=== PATIENT | male | born 1960 | race African-American/Black ===

== ENCOUNTER 2017-09-21 12:37 | Inpatient (IN) | payer OTHER ==
[2017-09-21 13:07] VITALS: BMI 32.3
--- NOTE | 2017-09-21 14:22 | HP ---
COWS - Scale Resting Pulse: 1= [place] 81-100 Sweatin= Chills/Flushing Restless Observation: 3= Extraneous Movement Pupil Size: 0= Normal to Room Light Bone or Joint Aches: 2= Severe Diffuse Aches Runny Nose/ Eye Tearin= Runny Nose/Eyes GI Upset > 30mins: 1= Stomach Cramp Tremor Observation: 1= Tremor [place], Not Seen Yawning Observation: 1= 1-2x During Session Anxiety or Irritability: 2=Irritable/Anxious Goose Flesh Skin: 0=Smooth Skin COWS Score: 14 Admission ROS S - HPI Chief Complaint: I've got the jerks, the shakes from not having any heroin - I need help Allergies/Adverse Reactions: Allergies Allergy/AdvReac Type Severity Reaction Status Date / Time No Known Allergies Allergy Verified 05/17/16 15:00 History of Present Illness: 56 gentleman here for detox from opiates - was in [facility] ED - got sick from taking suboxone - while also using heroin. Although he drinks, he states it is only about 3 times/week. History of prescribed xanax and oxycodone but none since jul 2017 per [place] PRIMARY COUNSELOR. No seizures but does have black outs. This is one of multiple times in detox. Last time in detox was here in 2016. History of being on suboxone and methadone in the past. Exam Limitations: Clinical Condition - Ebola screening Have you traveled outside of the country in the last 21 days: No (N) Have you had contact with anyone from an Ebola affected area: No Have you been sick,other than usual withdrawal symptoms: No Do you have a fever: No - Review of Systems Constitutional: Loss of Appetite, Malaise, Changes in sleep EENT: reports: Tearing, Nose Congestion Respiratory: reports: No Symptoms reported Cardiac: reports: Chest Tightness GI: reports: Poor Appetite, Vomiting, Indigestion : reports: No Symptoms Reported Musculoskeletal: reports: Back Pain, Joint Pain, Muscle Pain Integumentary: reports: Dryness Neuro: reports: Headache Endocrine: reports: No Symptoms Reported Hematology: reports: No Symptoms Reported Psychiatric: reports: Judgement Intact, Mood/Affect Appropiate, Anxious Other Systems: Reviewed and Negative Patient History - Patient Medical History Hx Anemia: Yes Hx Asthma: No Hx Chronic Obstructive Pulmonary Disease (COPD): Yes (inhaler) Hx Cancer: No Hx Cardiac Disorders: No Hx Congestive Heart Failure: No Hx Hypertension: Yes (on meds.) Hx Hypercholesterolemia: No Hx Pacemaker: No HX Cerebrovascular Accident: No Hx Seizures: No Hx Dementia: No Hx Diabetes: No Hx Gastrointestinal Disorders: No Hx Liver Disease: No Hx Genitourinary Disorders: No Hx Sexually Transmitted Disorders: No Hx Renal Disease (ESRD): No Hx Thyroid Disease: No Hx Human Immunodeficiency Virus (HIV): No Hx Hepatitis C: No Hx Depression: Yes (with insomnia; hospitalized in 1999 [facility]) Hx Suicide Attempt: No Hx Bipolar Disorder: No Hx Schizophrenia: No Other Medical History: back injury - nerve damage - Patient Surgical History Past Surgical History: Yes Hx Neurologic Surgery: Yes (low back sx 2000) Hx Cataract Extraction: No Hx Cardiac Surgery: No Hx Lung Surgery: No Hx Breast Surgery: No Hx Breast Biopsy: No Hx Abdominal Surgery: No Hx Appendectomy: No Hx Cholecystectomy: No Hx Genitourinary Surgery: No Hx Orthopedic Surgery: Yes (L knee sx 2001) Anesthesia Reaction: No - PPD History Previous Implant?: Yes Documented Results: Negative w/proof Implanted On Prior [facility] Admission?: Yes Date: 03/29/16 Results: 0 mm PPD to be Administered?: Yes - Reproductive History Patient is a Female of Child Bearing Age (11 -55 yrs old): No (male) - Smoking Cessation Smoking history: Current every day smoker Have you smoked in the past 12 months: Yes Aproximately how many cigarettes per day: 30 Cigars Per Day: 0 Hx Chewing Tobacco Use: No Initiated information on smoking cessation: Yes 'Breaking Loose' booklet given: 09/21/17 - Substance & Tx. History Hx Alcohol Use: Yes Hx Substance Use: Yes Substance Use Type: Alcohol, Heroin Hx Substance Use Treatment: Yes (detox, rehab, hx suboxone, hx methadone) - Substances Abused heroin Route: Inhalation Frequency: Daily Amount used: 3 bundles Age of first use: 15 Date of Last Use: 09/20/17 etoh Frequency: 3-6 times per week Amount used: three sixteen oz beers about three times a week Age of first use: 14 Date of Last Use: 09/18/17 Family Disease History - Family Disease History Family Disease History: Diabetes: Brother (six - three living - etoh,cirrhosis) , Heart Disease: Mother (living, htn, bedridden), Brother, [place]: Sister (four - breast cancer), Other: Father (, no contact, etoh), Mother, Brother, Sister, Daughter (living - healthy) Admission Physical Exam [facility] - Vital Signs Vital Signs: Vital Signs - 24 hr 09/21/17 13:05 Temperature 97.6 F Pulse Rate 76 Respiratory 18 Rate Blood Pressure 127/70 - Physical General Appearance: Yes: Nourished, Appropriately Dressed, Moderate Distress, Obese, Anxious HEENTM: Yes: EOMI, Hearing grossly Normal, Normocephalic, Normal Voice, Pharynx Normal Respiratory: Yes: Normal Breath Sounds, No Respiratory Distress Neck: Yes: No masses,lesions,Nodules, Supple Breast: Yes: Breast Exam Deferred Cardiology: Yes: Regular Rhythm, Regular Rate Abdominal: Yes: Flat, Soft Genitourinary: Yes: Within Normal Limits Back: Yes: Normal Inspection, Muscle Spasm Musculoskeletal: Yes: full range of Motion, Gait Steady, Back pain, Muscle Pain Extremities: Yes: Normal Inspection, Non-Tender Neurological: Yes: Fully Oriented, Alert, Normal Mood/Affect, Normal Response, Numbness Integumentary: Yes: Normal Color, Dry, Warm Lymphatic: Yes: Within Normal Limits - Diagnostic (1) Opioid dependence with withdrawal Current Visit: Yes Status: Acute (2) Nicotine dependence Current Visit: Yes Status: Acute Qualifiers: Nicotine product type: cigarettes Substance use status: uncomplicated Qualified Code(s): F17.210 - Nicotine dependence, cigarettes, uncomplicated (3) Arthritis of right knee Current Visit: Yes Status: Chronic (4) COPD (chronic obstructive pulmonary disease) Current Visit: Yes Status: Chronic Qualifiers: COPD type: emphysema Emphysema type: other Qualified Code(s): J43.8 - Other emphysema (5) Hypertension Current Visit: Yes Status: Chronic Qualifiers: Hypertension type: essential hypertension Qualified Code(s): I10 - Essential (primary) hypertension (6) Back pain Current Visit: Yes Status: Acute Qualifiers: Back pain location: low back pain Back pain laterality: bilateral Sciatica presence: with sciatica Sciatica laterality: bilateral sciatica Cleared for Admission S - Detox or Rehab S Level of Care: Medically Managed Detox Regimen/Protocol: Methadone S Breath Alcohol Content Breath Alcohol Content: 0 Urine Drug Screen - Results Urine Drug Screen Results: HARLEY-Cocaine, OPI-Opiates, TCA-Tricyclic Antidepress
[2017-09-21] MEDS ORDERED: LOPERAMIDE HCL 2 MG CAPSULE PO PRN (14:28)
[2017-09-21] MEDS ORDERED: METHADONE HCL 10 MG TABLET (FOR DETOX USE ONLY) PO ONE ×2 (14:28→23:00)
[2017-09-21] MEDS ORDERED: MAGNESIUM HYDROX 2400MG/30ML ORAL SUSPENSION 30 ML CUP PO PRN (14:28)
[2017-09-21] MEDS ORDERED: MAGNESIUM CITRATE 300 ML BOTTLE PO PRN (14:28)
[2017-09-21] MEDS ORDERED: MENTHOL/PHENOL 1 EACH UD MM PRN (14:28)
[2017-09-21] MEDS ORDERED: MAG HYDROX/AL HYDROX/SIMETH 30 ML UNIT-DOSE CUP PO PRN (14:28)
[2017-09-21] MEDS ORDERED: guaiFENesin/D-METHORPHAN HB 10 ML UNIT-DOSE CUPS PO PRN (14:28)
[2017-09-21] MEDS ORDERED: METHADONE HCL 10 MG TABLET (FOR DETOX USE ONLY) ONE (18:08)
[2017-09-21] MEDS: ASPIRIN 81 MG CHEWABLE TABLETS PO SCH (18:10)
[2017-09-21] MEDS: diazePAM 5 MG TABLET PO PRN ×2 (18:11→22:14)
[2017-09-21] MEDS: NICOTINE POLACRILEX 4 MG GUM BUC PRN (19:50)
[2017-09-21] MEDS: THIAMINE HCL 100 MG TABLET (FP) PO SCH (22:14)
[2017-09-21] MEDS: CYCLOBENZAPRINE HCL 5 MG TABLET PO PRN (23:00)
[2017-09-21 23:26] LABS: URINE APPEARANCE CLEAR; URINE BILIRUBIN NEGATIVE (<2.0 mg/dL); URINE BLOOD NEGATIVE (NEGATIVE); URINE COLOR DKYELLOW; URINE GLUCOSE (UA) NEGATIVE (NEGATIVE); URINE KETONE NEGATIVE (NEGATIVE); URINE LEUK ESTERASE NEGATIVE (NEGATIVE); URINE NITRITE NEGATIVE (NEGATIVE); URINE PROTEIN NEGATIVE (NEGATIVE); URINE UROBILINOGEN 4.0 E.U/dl mg/dL (0.2-1.0)
[2017-09-22] MEDS: diazePAM 5 MG TABLET PO PRN ×4 (02:03→22:23)
[2017-09-22] MEDS: CYCLOBENZAPRINE HCL 5 MG TABLET PO PRN ×2 (07:26→15:02)
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
[2017-09-22] MEDS: hydrOXYzine PAMOATE 50 MG CAPSULE (FP) PO PRN ×3 (08:54→19:39)
[2017-09-22] MEDS: ALBUTEROL SO4 18 GM HFA INHALER IH PRN (09:04)
[2017-09-22 09:59] LABS: HEMATOCRIT 39.2 % (35.4-49); MCH 30.7 pg (25.7-33.7); MCHC 33.2 g/dl (32.0-35.9); MEAN CELL VOLUME 92.3 fl (80-96); MEAN PLT VOLUME 9.6 fl (7.5-11.1); PLATELET COUNT 208 K/MM3 (134-434); RBC 4.25 M/mm3 (4.00-5.60); RDW 14.2 % (11.9-15.9); WHITE BLOOD COUNT 7.6 K/mm3 (4.0-10.0)
[2017-09-22] MEDS ORDERED: METHADONE HCL 10 MG TABLET (FOR DETOX USE ONLY) PO ONE (10:00)
[2017-09-22 10:03] LABS: ALBUMIN 3.4 g/dl (3.4-5.0); ANION GAP 7 (8-16); BILIRUBIN,TOTAL 0.3 mg/dL (0.2-1.0); BLOOD UREA NITROGEN 12 mg/dL (7-18); CALCIUM 8.4 mg/dL (8.5-10.1); CHLORIDE 110 mmol/L (98-107); CO2 26 mmol/L (21-32); CREATININE 0.8 mg/dL (0.7-1.3); GLUCOSE,RANDOM 103 mg/dL (74-106); SGOT/AST 16 U/L (15-37); SODIUM 143 mmol/L (136-145); TOT PROT 6.5 g/dl (6.4-8.2)
[2017-09-22 10:05] LABS: ALK PHOS 82 U/L (45-117); SGPT/ALT 24 U/L (12-78)
[2017-09-22] MEDS: PRENATAL VITAMINS W/ FOLIC ACID TABLET (FP) PO SCH (10:08)
[2017-09-22] MEDS: ASPIRIN 81 MG CHEWABLE TABLETS PO SCH (10:08)
--- NOTE | 2017-09-22 14:46 | EKG ---
Test Reason : Blood Pressure : / mmHG Vent. Rate : 069 BPM Atrial Rate : 069 BPM P-R Int : 276 ms QRS Dur : 078 ms QT Int : 388 ms P-R-T Axes : 029 049 054 degrees QTc Int : 415 ms SINUS RHYTHM WITH 1ST DEGREE A-V BLOCK OTHERWISE NORMAL ECG NO PREVIOUS ECGS AVAILABLE Confirmed by SKYE WILLIAM MD ([id number]) on 09/22/2017 2:45:50 PM Referred By: Confirmed By:SKYE WILLIAM MD
--- NOTE | 2017-09-22 15:00 | PN ---
S COWS - Scale Resting Pulse: 0= [place] 80 or Below Sweatin= Chills/Flushing Restless Observation: 3= Extraneous Movement Pupil Size: 1= Pupils >than Normal Bone or Joint Aches: 2= Severe Diffuse Aches Runny Nose/ Eye Tearin= Runny Nose/Eyes GI Upset > 30mins: 2= Nausea/Diarrhea Tremor Observation of Outstretched Hands: 2= Slight Tremor Visible Yawning Observation: 1= 1-2x During Session Anxiety or Irritability: 2=Irritable/Anxious Goose Flesh Skin: 0=Smooth Skin COWS Score: 16 S Progress Note (SOAP) Subjective: Diarrhea, muscle spasm/ache, tremor, chills, sweating Objective: 09/22/17 14:59 Last Vital Signs Temp Pulse Resp BP Pulse Ox 97 F L 66 16 125/72 09/22/17 14:12 09/22/17 14:12 09/22/17 14:12 09/22/17 14:12 Laboratory Tests 09/21/17 09/22/17 09/22/17 21:00 07:30 07:30 WBC 7.6 RBC 4.25 Hgb 13.0 Hct 39.2 MCV 92.3 MCH 30.7 MCHC 33.2 RDW 14.2 Plt Count 208 MPV 9.6 Sodium 143 Potassium 4.0 Chloride 110 H Carbon Dioxide 26 Anion Gap 7 L BUN 12 D Creatinine 0.8 Creat Clearance w eGFR > 60 Random Glucose 103 D Calcium 8.4 L Total Bilirubin 0.3 D AST 16 ALT 24 Alkaline Phosphatase 82 Total Protein 6.5 Albumin 3.4 Urine Color Dkyellow Urine Appearance Clear Urine pH 6.0 Ur Specific [place] 1.028 Urine Protein Negative Urine Glucose (UA) Negative Urine Ketones Negative Urine Blood Negative Urine Nitrite Negative Urine Bilirubin Negative Urine Urobilinogen 4.0 e.u/dl Ur Leukocyte Esterase Negative RPR Titer 09/22/17 07:30 WBC RBC Hgb Hct MCV MCH MCHC RDW Plt Count MPV Sodium Potassium Chloride Carbon Dioxide Anion Gap BUN Creatinine Creat Clearance w eGFR Random Glucose Calcium Total Bilirubin AST ALT Alkaline Phosphatase Total Protein Albumin Urine Color Urine Appearance Urine pH Ur Specific [place] Urine Protein Urine Glucose (UA) Urine Ketones Urine Blood Urine Nitrite Urine Bilirubin Urine Urobilinogen Ur Leukocyte Esterase RPR Titer Nonreactive Labs reviewed Assessment: 09/22/17 14:59 Withdrawal symptoms Plan: Encouraged detox Encouraged to drink more water for hydration
[2017-09-22] MEDS: [UNRECOGNIZED DRUG - OTHER] PO SCH (16:43)
[2017-09-22] MEDS ORDERED: QUEtiapine FUMARATE 100 MG TABLET (FP) PO SCH ×2 (22:00)
[2017-09-22] MEDS: THIAMINE HCL 100 MG TABLET (FP) PO SCH (22:23)
[2017-09-22] MEDS: MELATONIN 5 MG TABLETS PO PRN (22:23)
[2017-09-23] MEDS: diazePAM 5 MG TABLET PO PRN ×4 (02:53→22:10)
[2017-09-23] MEDS ORDERED: METHADONE HCL 5 MG TABLET (FOR DETOX USE ONLY) PO ONE (10:00)
[2017-09-23] MEDS: ASPIRIN 81 MG CHEWABLE TABLETS PO SCH (10:05)
[2017-09-23] MEDS: PRENATAL VITAMINS W/ FOLIC ACID TABLET (FP) PO SCH (10:05)
[2017-09-23] MEDS: [UNRECOGNIZED DRUG - OTHER] PO SCH (10:06)
[2017-09-23] MEDS: hydrOXYzine PAMOATE 50 MG CAPSULE (FP) PO PRN ×3 (10:07→20:02)
--- NOTE | 2017-09-23 10:31 | PN ---
BHS COWS - Scale Resting Pulse: 0= [place] 80 or Below Sweatin= Chills/Flushing Restless Observation: 3= Extraneous Movement Pupil Size: 2= Moderately Dilated Bone or Joint Aches: 4=Acute Joint/Muscle Pain Runny Nose/ Eye Tearin= Nasal Congestion GI Upset > 30mins: 1= Stomach Cramp Tremor Observation of Outstretched Hands: 1= Tremor [place], Not Seen Yawning Observation: 2= >3x During Session Anxiety or Irritability: 2=Irritable/Anxious Goose Flesh Skin: 0=Smooth Skin COWS Score: 17 BHS Progress Note (SOAP) Subjective: ANXIETY,SWEATS,IRRITABILITY, Objective: 09/23/17 10:46 ANXIETY,SWEATS,MUSCLE ACHES,FATIGUE,INTERMITTENT SLEEP. Assessment: 09/23/17 10:50 WITHDRAWAL SX Plan: CONTINUE DETOX F/U WITH PSYCH RE-EVAL TODAY.
[2017-09-23] MEDS: NICOTINE POLACRILEX 4 MG GUM BUC PRN (11:38)
[2017-09-23] MEDS: NICOTINE 21 MG/24 HOURS TOPICAL PATCH TD SCH (12:00)
--- NOTE | 2017-09-23 13:02 | PN ---
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 ROS: Unremarkable.No somatic complaints offered.Patient is cognitively intact.Ambulatory.Visible on the unit. Current Medications: Active Medications Generic Name Dose Route Start Last Admin Trade Name Freq PRN Reason Stop Dose Admin Acetaminophen 650 mg 09/21/17 14:28 Tylenol - PO Q4H PRN FEVER Al Hydroxide/Mg Hydroxide 30 ml 09/21/17 14:28 Mylanta Oral Suspension - PO Q6H PRN DYSPEPSIA Albuterol Sulfate 2 puff 09/21/17 14:30 09/22/17 09:04 Ventolin Hfa Inhaler - IH 2 puff Q4H PRN Administration SHORT OF BREATH/WHEEZING Aspirin 81 mg 09/21/17 15:15 09/23/17 10:05 Asa - PO 81 mg DAILY VIVAINE Administration Cyclobenzaprine HCl 10 mg 09/22/17 10:18 09/22/17 15:02 Cyclobenzaprine Hcl PO 10 mg TID PRN Administration MUSCLE SPASMS Diazepam 10 mg 09/21/17 14:28 09/23/17 10:05 Valium - PO 09/24/17 14:27 10 mg Q4H PRN Administration WITHDRAWAL(CONT SUBST) Eucalyptus/Menthol/Phenol/Sorbitol 1 each 09/21/17 14:28 Cepastat Lozenge - MM Q4H PRN SORE THROAT Guaifenesin 10 ml 09/21/17 14:28 Robitussin Dm - PO Q6H PRN COUGH Hydroxyzine Pamoate 50 mg 09/21/17 14:28 09/23/17 10:07 Vistaril - PO 50 mg Q4H PRN Administration AGITATION Loperamide HCl 4 mg 09/21/17 14:28 09/22/17 09:24 Imodium - PO 4 mg Q6H PRN Administration DIARRHEA Magnesium Citrate 300 ml 09/21/17 14:28 Citroma - PO Q48H PRN CONSTIPATION Magnesium Hydroxide 30 ml 09/21/17 14:28 Milk Of Magnesia - PO DAILY PRN CONSTIPATION Melatonin 5 mg 09/21/17 22:00 09/22/17 22:23 Melatonin PO 5 mg HS PRN Administration INSOMNIA Methadone HCl 5 mg 09/26/17 06:00 Dolophine - PO 09/26/17 06:01 ONCE@0600 ONE Methadone HCl 15 mg 09/24/17 10:00 Dolophine - PO 09/24/17 10:01 ONCE ONE Methadone HCl 10 mg 09/25/17 10:00 Dolophine - PO 09/25/17 10:01 ONCE ONE Nicotine 21 mg 09/23/17 11:45 09/23/17 12:00 Nicoderm Patch - TD 21 mg DAILY VIVIANE Administration Nicotine Polacrilex 4 mg 09/21/17 14:28 09/23/17 11:38 Nicorette Gum - BUC 4 mg Q2H PRN Administration NICOTINE REPLACEMENT RX Ptnt's Own Med (Non- 1 each 09/22/17 10:00 09/23/17 10:06 Formulary) ( PO 1 each Olmesartan/Amlodipin DAILY VIVIANE Administration /Hcthiazid [Olmsrtn- Amldpn-H Multivit/Folic Acid/Iron 1 tab 09/22/17 10:00 09/23/17 10:05 Vitamins ([facility]) - PO 1 tab DAILY VIVIANE Administration Pseudoephedrine/Triprolidine 1 combo 09/21/17 14:28 Actifed - PO TID PRN NASAL CONGESTION Quetiapine Fumarate 100 mg 09/22/17 22:00 09/22/17 22:23 Seroquel - PO 100 mg HS VIVIANE Administration Thiamine HCl 100 mg 09/21/17 22:00 09/22/17 22:23 Vitamin B1 - PO 100 mg HS VIVIANE Administration Medication(s) Change(s): Seroquel is raised to 150 mg po hs.Lexapro 5 mg po daily is added to the regimen.Side effects/benefits of both drugs are discussed with the patient.Made aware of risk for metabolic syndrome,abnormal involuntary movements,oversedation/falls,sexual dysfunction and suicidal ideation (lexapro) .Mr Cota has expressed his agreement to this plan of care. Current Side Effect: No Lab tests ordered: No Lab tests reviewed: Yes Provider note:: Chart reviewed.Case presented by MORRO Delgado.Dr Simeon's note of 09/22/17 is appreciated.Patient is interviewed.He is currently endorsing chronic insomnia,feelings of anhedonia,low energy level,sad/anxious mood on a daily basis,decreased appetite and low self-esteem.No suicidal ideation elicited.Mr Cota indicates admits to frequent crying spells whenever he reminisces about the of his brother (the was reportedly found in his apartment days after ).Patient states that he has no intent or plan to harm himself.He expresses the wish stay alive,take care of personal issues ( imminent court date,current bills,completion of detoxification protocol, enrollment in OPD care after discharge from [address] [place] [address]).Future-orientedness is well preserved.No occurrence of behavioral dyscontrol.No clinical evidence of psychosis.Patient presents as well groomed,active,conversant,adherent to his current treatment regime and sociable.Not a danger to self or others.Mental status remains stable.Psychopharmacotherapy discussed with patient.Mr Cota is informed of antidepressant drugs currently available,side effects profile, alternatives to antidepressant medications and the prognosis of MDD if treatment is delayed or rejected.Patient declares that he is agreable with a trial of lexapro + psychiatric aftercare. Total face to face time:: 35 Mental Status Exam - Mental Status Exam Alert and Oriented to: Time, Place, Person Cognitive Function: Good Patient Appearance: Well Groomed Mood: Sad, Withdrawn, Anxious Affect: Mood Congruent Patient Behavior: Fatigued, Appropriate, Cooperative Speech Pattern: Clear, Appropriate Voice Loudness: Normal Thought Process: Intact, Goal Oriented Thought Disorder: Not Present Hallucinations: Denies Suicidal Ideation: Denies Homicidal Ideation: Denies Insight/Judgement: Fair Sleep: Poorly, Difficulty falling asleep Appetite: Good Muscle strength/Tone: Normal Gait/Station: Normal Psychiatric Treatment Plan - Problem List (1) Alcohol dependence with uncomplicated withdrawal Current Visit: Yes (2) Opioid dependence with withdrawal Current Visit: Yes (3) Nicotine dependence Current Visit: Yes Qualifiers: Nicotine product type: cigarettes Substance use status: uncomplicated Qualified Code(s): F17.210 - Nicotine dependence, cigarettes, uncomplicated (4) Substance induced mood disorder Current Visit: Yes (5) MDD (major depressive disorder), recurrent episode, moderate Current Visit: Yes
[2017-09-23] MEDS: ACETAMINOPHEN 325 MG TABLET (FP) PO PRN (14:21)
[2017-09-23] MEDS: ALBUTEROL SO4 18 GM HFA INHALER IH PRN (14:22)
[2017-09-23] MEDS: CYCLOBENZAPRINE HCL 5 MG TABLET PO PRN (16:50)
[2017-09-23] MEDS: THIAMINE HCL 100 MG TABLET (FP) PO SCH (22:09)
[2017-09-23] MEDS: QUEtiapine FUMARATE 50 MG TABLET PO SCH (22:10)
[2017-09-23] MEDS: MELATONIN 5 MG TABLETS PO PRN (22:11)
[2017-09-24] MEDS: hydrOXYzine PAMOATE 50 MG CAPSULE (FP) PO PRN ×4 (01:38→22:23)
[2017-09-24] MEDS: diazePAM 5 MG TABLET PO PRN ×2 (05:25→09:09)
[2017-09-24] MEDS: [UNRECOGNIZED DRUG - OTHER] PO SCH (09:09)
[2017-09-24] MEDS: PRENATAL VITAMINS W/ FOLIC ACID TABLET (FP) PO SCH (09:09)
[2017-09-24] MEDS: ASPIRIN 81 MG CHEWABLE TABLETS PO SCH (09:09)
[2017-09-24] MEDS: NICOTINE 21 MG/24 HOURS TOPICAL PATCH TD SCH (09:10)
[2017-09-24] MEDS: ESCITALOPRAM OXALATE 10 MG TABLET (FP) PO SCH (09:10)
[2017-09-24] MEDS: CYCLOBENZAPRINE HCL 5 MG TABLET PO PRN (09:10)
[2017-09-24] MEDS: ALBUTEROL SO4 18 GM HFA INHALER IH PRN (09:12)
[2017-09-24] MEDS ORDERED: METHADONE HCL 5 MG TABLET (FOR DETOX USE ONLY) PO ONE (10:00)
[2017-09-24] MEDS ORDERED: cloNIDine HCL 0.1 MG TABLET PO ONE (10:31)
--- NOTE | 2017-09-24 11:04 | PN ---
BHS Progress Note (SOAP) Subjective: ANXIETY,SWEATS,MUSCLE/STOMACH CRAMPS/TWITCHES. Objective: 09/24/17 10:59 Vital Signs Temperature 97.3 F L 09/24/17 09:42 Pulse Rate 79 09/24/17 09:42 Respiratory Rate 20 09/24/17 09:42 Blood Pressure 114/75 09/24/17 09:42 O2 Sat by Pulse Oximetry (%) Laboratory Last Values WBC 7.6 K/mm3 (4.0-10.0) 09/22/17 07:30 RBC 4.25 M/mm3 (4.00-5.60) 09/22/17 07:30 Hgb 13.0 GM/dL (11.7-16.9) 09/22/17 07:30 Hct 39.2 % (35.4-49) 09/22/17 07:30 MCV 92.3 fl (80-96) 09/22/17 07:30 MCH 30.7 pg (25.7-33.7) 09/22/17 07:30 MCHC 33.2 g/dl (32.0-35.9) 09/22/17 07:30 RDW 14.2 % (11.9-15.9) 09/22/17 07:30 Plt Count 208 K/MM3 (134-434) 09/22/17 07:30 MPV 9.6 fl (7.5-11.1) 09/22/17 07:30 Sodium 143 mmol/L (136-145) 09/22/17 07:30 Potassium 4.0 mmol/L (3.5-5.1) 09/22/17 07:30 Chloride 110 mmol/L (98-107) H 09/22/17 07:30 Carbon Dioxide 26 mmol/L (21-32) 09/22/17 07:30 Anion Gap 7 (8-16) L 09/22/17 07:30 BUN 12 mg/dL (7-18) D 09/22/17 07:30 Creatinine 0.8 mg/dL (0.7-1.3) 09/22/17 07:30 Creat Clearance w eGFR > 60 (>60) 09/22/17 07:30 Random Glucose 103 mg/dL (74-106) D 09/22/17 07:30 Calcium 8.4 mg/dL (8.5-10.1) L 09/22/17 07:30 Total Bilirubin 0.3 mg/dL (0.2-1.0) D 09/22/17 07:30 AST 16 U/L (15-37) 09/22/17 07:30 ALT 24 U/L (12-78) 09/22/17 07:30 Alkaline Phosphatase 82 U/L (45-117) 09/22/17 07:30 Total Protein 6.5 g/dl (6.4-8.2) 09/22/17 07:30 Albumin 3.4 g/dl (3.4-5.0) 09/22/17 07:30 Urine Color Dkyellow 09/21/17 21:00 Urine Appearance Clear 09/21/17 21:00 Urine pH 6.0 (5.0-8.0) 09/21/17 21:00 Ur Specific [place] 1.028 (1.001-1.035) 09/21/17 21:00 Urine Protein Negative (NEGATIVE) 09/21/17 21:00 Urine Glucose (UA) Negative (NEGATIVE) 09/21/17 21:00 Urine Ketones Negative (NEGATIVE) 09/21/17 21:00 Urine Blood Negative (NEGATIVE) 09/21/17 21:00 Urine Nitrite Negative (NEGATIVE) 09/21/17 21:00 Urine Bilirubin Negative (<2.0 mg/dL) 09/21/17 21:00 Urine Urobilinogen 4.0 e.u/dl mg/dL (0.2-1.0) 09/21/17 21:00 Ur Leukocyte Esterase Negative (NEGATIVE) 09/21/17 21:00 RPR Titer Nonreactive (NONREACTIVE) 09/22/17 07:30 Assessment: 09/24/17 10:59 WITHDRAWAL SX Plan: CONTINUE DETOX
[2017-09-24] MEDS: CYCLOBENZAPRINE HCL 10 MG TABLET (FP) PO SCH ×2 (13:03→22:22)
[2017-09-24] MEDS: P-EPHED 60MG/TRIPROLIDI 2.5MG TABLET PO PRN ×2 (13:44→21:14)
[2017-09-24] MEDS: QUEtiapine FUMARATE 50 MG TABLET PO SCH (22:21)
[2017-09-24] MEDS: cloNIDine HCL 0.1 MG TABLET PO SCH (22:21)
[2017-09-24] MEDS: THIAMINE HCL 100 MG TABLET (FP) PO SCH (22:24)
[2017-09-24] MEDS: MELATONIN 5 MG TABLETS PO PRN (22:46)
[2017-09-25] MEDS: CYCLOBENZAPRINE HCL 10 MG TABLET (FP) PO SCH ×3 (05:34→22:06)
[2017-09-25] MEDS: hydrOXYzine PAMOATE 50 MG CAPSULE (FP) PO PRN ×3 (05:35→18:35)
[2017-09-25] MEDS: ACETAMINOPHEN 325 MG TABLET (FP) PO PRN ×2 (05:35→13:12)
[2017-09-25] MEDS: P-EPHED 60MG/TRIPROLIDI 2.5MG TABLET PO PRN ×2 (05:36→16:33)
[2017-09-25] MEDS ORDERED: METHADONE HCL 10 MG TABLET (FOR DETOX USE ONLY) PO ONE (10:00)
[2017-09-25] MEDS: cloNIDine HCL 0.1 MG TABLET PO SCH ×2 (10:11→22:07)
[2017-09-25] MEDS: ASPIRIN 81 MG CHEWABLE TABLETS PO SCH (10:11)
[2017-09-25] MEDS: PRENATAL VITAMINS W/ FOLIC ACID TABLET (FP) PO SCH (10:11)
[2017-09-25] MEDS: ESCITALOPRAM OXALATE 10 MG TABLET (FP) PO SCH (10:11)
[2017-09-25] MEDS: [UNRECOGNIZED DRUG - OTHER] PO SCH (10:11)
[2017-09-25] MEDS: NICOTINE 21 MG/24 HOURS TOPICAL PATCH TD SCH (10:12)
--- NOTE | 2017-09-25 10:51 | PN ---
BHS Progress Note (SOAP) Subjective: SLIGHT ANXIETY,SWEATS. OOB WITH STEADY GAIT. LESS FATIGUE TODAY. Objective: 09/25/17 10:50 Vital Signs Temperature 96 F L 09/25/17 09:18 Pulse Rate 77 09/25/17 09:18 Respiratory Rate 20 09/25/17 09:18 Blood Pressure 109/69 09/25/17 09:18 O2 Sat by Pulse Oximetry (%) Laboratory Last Values WBC 7.6 K/mm3 (4.0-10.0) 09/22/17 07:30 RBC 4.25 M/mm3 (4.00-5.60) 09/22/17 07:30 Hgb 13.0 GM/dL (11.7-16.9) 09/22/17 07:30 Hct 39.2 % (35.4-49) 09/22/17 07:30 MCV 92.3 fl (80-96) 09/22/17 07:30 MCH 30.7 pg (25.7-33.7) 09/22/17 07:30 MCHC 33.2 g/dl (32.0-35.9) 09/22/17 07:30 RDW 14.2 % (11.9-15.9) 09/22/17 07:30 Plt Count 208 K/MM3 (134-434) 09/22/17 07:30 MPV 9.6 fl (7.5-11.1) 09/22/17 07:30 Sodium 143 mmol/L (136-145) 09/22/17 07:30 Potassium 4.0 mmol/L (3.5-5.1) 09/22/17 07:30 Chloride 110 mmol/L (98-107) H 09/22/17 07:30 Carbon Dioxide 26 mmol/L (21-32) 09/22/17 07:30 Anion Gap 7 (8-16) L 09/22/17 07:30 BUN 12 mg/dL (7-18) D 09/22/17 07:30 Creatinine 0.8 mg/dL (0.7-1.3) 09/22/17 07:30 Creat Clearance w eGFR > 60 (>60) 09/22/17 07:30 Random Glucose 103 mg/dL (74-106) D 09/22/17 07:30 Calcium 8.4 mg/dL (8.5-10.1) L 09/22/17 07:30 Total Bilirubin 0.3 mg/dL (0.2-1.0) D 09/22/17 07:30 AST 16 U/L (15-37) 09/22/17 07:30 ALT 24 U/L (12-78) 09/22/17 07:30 Alkaline Phosphatase 82 U/L (45-117) 09/22/17 07:30 Total Protein 6.5 g/dl (6.4-8.2) 09/22/17 07:30 Albumin 3.4 g/dl (3.4-5.0) 09/22/17 07:30 Urine Color Dkyellow 09/21/17 21:00 Urine Appearance Clear 09/21/17 21:00 Urine pH 6.0 (5.0-8.0) 09/21/17 21:00 Ur Specific [place] 1.028 (1.001-1.035) 09/21/17 21:00 Urine Protein Negative (NEGATIVE) 09/21/17 21:00 Urine Glucose (UA) Negative (NEGATIVE) 09/21/17 21:00 Urine Ketones Negative (NEGATIVE) 09/21/17 21:00 Urine Blood Negative (NEGATIVE) 09/21/17 21:00 Urine Nitrite Negative (NEGATIVE) 09/21/17 21:00 Urine Bilirubin Negative (<2.0 mg/dL) 09/21/17 21:00 Urine Urobilinogen 4.0 e.u/dl mg/dL (0.2-1.0) 09/21/17 21:00 Ur Leukocyte Esterase Negative (NEGATIVE) 09/21/17 21:00 RPR Titer Nonreactive (NONREACTIVE) 09/22/17 07:30 Assessment: 09/25/17 10:50 WITHDRAWAL SX Plan: CONTINUE DETOX
[2017-09-25] MEDS: QUEtiapine FUMARATE 50 MG TABLET PO SCH (22:06)
[2017-09-25] MEDS: THIAMINE HCL 100 MG TABLET (FP) PO SCH (22:06)
[2017-09-26] MEDS: hydrOXYzine PAMOATE 50 MG CAPSULE (FP) PO PRN ×2 (04:51→09:38)
[2017-09-26] MEDS: CYCLOBENZAPRINE HCL 10 MG TABLET (FP) PO SCH (05:10)
[2017-09-26] MEDS ORDERED: METHADONE HCL 5 MG TABLET (FOR DETOX USE ONLY) PO ONE (06:00)
[2017-09-26 09:08] VITALS: BP 99/58; PULSE 69; TEMP 96.4
[2017-09-26] MEDS: PRENATAL VITAMINS W/ FOLIC ACID TABLET (FP) PO SCH (09:35)
[2017-09-26] MEDS: cloNIDine HCL 0.1 MG TABLET PO SCH (09:35)
[2017-09-26] MEDS: ASPIRIN 81 MG CHEWABLE TABLETS PO SCH (09:35)
[2017-09-26] MEDS: ESCITALOPRAM OXALATE 10 MG TABLET (FP) PO SCH (09:35)
[2017-09-26] MEDS: NICOTINE 21 MG/24 HOURS TOPICAL PATCH TD SCH (09:36)
[2017-09-26] MEDS: [UNRECOGNIZED DRUG - OTHER] PO SCH (09:37)
--- NOTE | 2017-09-26 19:44 | PN ---
[facility] Progress Note (SOAP) Subjective: Patient denies current Detox symptoms and reports that he feels well overall. Objective: PATIENT A & O X 3, OBSERVED AMBULATING ON UNIT. NO ACUTE DISTRESS. 09/26/17 19:43 Vital Signs Temperature 96.4 F L 09/26/17 09:07 Pulse Rate 69 09/26/17 09:07 Respiratory Rate 18 09/26/17 09:07 Blood Pressure 99/58 09/26/17 09:07 O2 Sat by Pulse Oximetry (%) Laboratory Tests 09/21/17 09/22/17 09/22/17 21:00 07:30 07:30 WBC 7.6 RBC 4.25 Hgb 13.0 Hct 39.2 MCV 92.3 MCH 30.7 MCHC 33.2 RDW 14.2 Plt Count 208 MPV 9.6 Sodium 143 Potassium 4.0 Chloride 110 H Carbon Dioxide 26 Anion Gap 7 L BUN 12 D Creatinine 0.8 Creat Clearance w eGFR > 60 Random Glucose 103 D Calcium 8.4 L Total Bilirubin 0.3 D AST 16 ALT 24 Alkaline Phosphatase 82 Total Protein 6.5 Albumin 3.4 Urine Color Dkyellow Urine Appearance Clear Urine pH 6.0 Ur Specific [place] 1.028 Urine Protein Negative Urine Glucose (UA) Negative Urine Ketones Negative Urine Blood Negative Urine Nitrite Negative Urine Bilirubin Negative Urine Urobilinogen 4.0 e.u/dl Ur Leukocyte Esterase Negative RPR Titer 09/22/17 07:30 WBC RBC Hgb Hct MCV MCH MCHC RDW Plt Count MPV Sodium Potassium Chloride Carbon Dioxide Anion Gap BUN Creatinine Creat Clearance w eGFR Random Glucose Calcium Total Bilirubin AST ALT Alkaline Phosphatase Total Protein Albumin Urine Color Urine Appearance Urine pH Ur Specific [place] Urine Protein Urine Glucose (UA) Urine Ketones Urine Blood Urine Nitrite Urine Bilirubin Urine Urobilinogen Ur Leukocyte Esterase RPR Titer Nonreactive LABS NOTED. Assessment: 09/26/17 19:44 COMPLETION OF DETOX REGIMEN. Plan: PATIENT SCHEDULED FOR DISCHARGE FROM DETOX UNIT TODAY.
--- NOTE | 2017-09-26 19:47 | DS ---
[facility] Detox Discharge Summary Admission Date: 09/21/17 Discharge Date: 09/26/17 - History Present History: Alcohol Dependence Additional Comments: PATIENT WILL GO TO [facility] ([place] FOR AFTERCARE. PATIENT WAS DISCHARGED FROM DETOX UNIT IN STABLE MEDICAL CONDITION. Pertinent Past History: Arthritis of Right Knee, Anxiety, Depression, Insomnia, HTN, Asthma, History of Anemia, History of Back Injury with Nerve Damage, COPD, Nicotine Dependence. - Physical Exam Results Vital Signs: Vital Signs Temperature 96.4 F L 09/26/17 09:07 Pulse Rate 69 09/26/17 09:07 Respiratory Rate 18 09/26/17 09:07 Blood Pressure 99/58 09/26/17 09:07 O2 Sat by Pulse Oximetry (%) Pertinent Admission Physical Exam Findings: WITHDRAWAL SYMPTOMS. Laboratory Tests 09/21/17 09/22/17 09/22/17 21:00 07:30 07:30 WBC 7.6 RBC 4.25 Hgb 13.0 Hct 39.2 MCV 92.3 MCH 30.7 MCHC 33.2 RDW 14.2 Plt Count 208 MPV 9.6 Sodium 143 Potassium 4.0 Chloride 110 H Carbon Dioxide 26 Anion Gap 7 L BUN 12 D Creatinine 0.8 Creat Clearance w eGFR > 60 Random Glucose 103 D Calcium 8.4 L Total Bilirubin 0.3 D AST 16 ALT 24 Alkaline Phosphatase 82 Total Protein 6.5 Albumin 3.4 Urine Color Dkyellow Urine Appearance Clear Urine pH 6.0 Ur Specific [place] 1.028 Urine Protein Negative Urine Glucose (UA) Negative Urine Ketones Negative Urine Blood Negative Urine Nitrite Negative Urine Bilirubin Negative Urine Urobilinogen 4.0 e.u/dl Ur Leukocyte Esterase Negative RPR Titer 09/22/17 07:30 WBC RBC Hgb Hct MCV MCH MCHC RDW Plt Count MPV Sodium Potassium Chloride Carbon Dioxide Anion Gap BUN Creatinine Creat Clearance w eGFR Random Glucose Calcium Total Bilirubin AST ALT Alkaline Phosphatase Total Protein Albumin Urine Color Urine Appearance Urine pH Ur Specific [place] Urine Protein Urine Glucose (UA) Urine Ketones Urine Blood Urine Nitrite Urine Bilirubin Urine Urobilinogen Ur Leukocyte Esterase RPR Titer Nonreactive LABS NOTED. - Treatment Hospital Course: Detox Protocol Followed, Detoxed Safely, Responded well, Discharged Condition Good Patient has Accepted a Rehab Referral to: PATIENT GOING TO [facility] ([place] - Medication Discharge Medications: Ambulatory Orders Aspirin [ASA -] 81 mg PO DAILY 03/27/16 Albuterol Sulfate Inhaler - [Ventolin Hfa Inhaler -] 2 inh PO Q4H PRN 05/17/16 Olmesartan/Amlodipin/Hcthiazid [[id number] 40-10-25Mg] 1 each PO DAILY 09/21/17 Escitalopram Oxalate [Lexapro -] 5 mg PO DAILY #30 tablet 09/26/17 Quetiapine Fumarate [Seroquel] 100 mg PO HS #30 tablet 09/26/17 - Diagnosis (1) Alcohol dependence with uncomplicated withdrawal Status: Acute (2) Asthma Status: Acute Qualifiers: Asthma severity: mild Asthma persistence: unspecified Asthma complication type: uncomplicated Qualified Code(s): J45.909 - Unspecified asthma, uncomplicated (3) Cocaine dependence Status: Acute Qualifiers: Substance use status: uncomplicated Qualified Code(s): F14.20 - Cocaine dependence, uncomplicated (4) Substance induced mood disorder Status: Acute (5) Substance-induced sleep disorder Status: Acute (6) Anemia Status: Chronic Qualifiers: Anemia type: folate deficiency Folate deficiency anemia type: dietary Qualified Code(s): D52.0 - Dietary folate deficiency anemia (7) Arthritis of right knee Status: Chronic (8) COPD (chronic obstructive pulmonary disease) Status: Chronic Qualifiers: COPD type: emphysema Emphysema type: other Qualified Code(s): J43.8 - Other emphysema (9) Hypertension Status: Chronic Qualifiers: Hypertension type: essential hypertension Qualified Code(s): I10 - Essential (primary) hypertension (10) Nicotine dependence Status: Chronic Qualifiers: Nicotine product type: cigarettes Substance use status: uncomplicated Qualified Code(s): F17.210 - Nicotine dependence, cigarettes, uncomplicated (11) MDD (major depressive disorder), recurrent episode, moderate Status: Ruled-out - AMA Did Patient Leave Against Medical Advice: No
== END 2017-09-26 11:45 | disposition home or self-care (01) | DRG 774 ==
LOC: YASAS 12:37 → Y3N 16:49
PROVIDERS: ADMIT Internal Medicine; ATTEND Internal Medicine
PROC: HZ2ZZZZ Detoxification Services for Substance Abuse Treatment (ICD-10-PCS; principal; 2017-09-21)
DX: F10.230 Alcohol dependence with withdrawal, uncomplicated (principal); F14.20 Cocaine dependence, uncomplicated; F17.210 Nicotine dependence, cigarettes, uncomplicated; F19.24 Other psychoactive substance dependence with psychoactive substance-induced mood disorder; F19.282 Other psychoactive substance dependence with psychoactive substance-induced sleep disorder; F33.1 Major depressive disorder, recurrent, moderate; I10 Essential (primary) hypertension; D52.0 Dietary folate deficiency anemia; M54.41 Lumbago with sciatica, right side; M54.42 Lumbago with sciatica, left side; M13.861 Other specified arthritis, right knee
CPT/HCPCS: 36415; 80053; 81003; 85027; 86593; 93005; 93010; J0735